=== PATIENT | male | born 2005 | race Caucasian/White ===

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

== ENCOUNTER 2024-09-01 13:59 | Emergency (ER) | payer BC, MEDICAID ==
[2024-09-01 14:15] VITALS: TEMP 98.4
[2024-09-01 14:57] LABS: Absolute Neutrophil Ct (ANC) 3.11 x10^3/uL (1.78-5.38); BASOPHIL % 0.2 % (0.2-1.2); Basophil (Absolute #) 0.01 x10^3/uL (0.01-0.08); Eosinophil % 1.3 % (0.8-7.0); Eosinophil (Absolute #) 0.06 x10^3/uL (0.04-0.54); Hematocrit 41.4 % (40.1-51.0); Hemoglobin 14.3 g/dL (13.7-17.5); Lymphocyte (Absolute #) 0.86 x10^3/uL (1.32-3.57); Mean Cell Volume 91.2 fL (79.0-92.2); Mean Corpuscular Hemoglobin 31.5 pg (25.7-32.2); Mean Corpuscular Hgb Concent. 34.5 g/dL (32.3-36.5); Mean Platelet Volume 9.4 fL (9.4-12.4); Monocyte (Absolute #) 0.74 x10^3/uL (0.30-0.82); Monocytes % 15.5 % (5.3-12.2); Platelet Count 171 x10^3/uL (163-337); Red Blood Count 4.54 x10^6/uL (4.63-6.08); White Blood Count 4.8 x10^3/uL (4.23-9.07)
[2024-09-01] MEDS ORDERED: Sodium Chloride 0.9% 1000 ML 1,000 ML ONE (14:59)
[2024-09-01] MEDS ORDERED: PROTONIX 40 MG IV IV ONE (14:59)
[2024-09-01] MEDS: PROTONIX 40 MG IV IV ONE (15:01)
[2024-09-01] MEDS: Sodium Chloride 0.9% 1000 ML 1,000 ML IV STA (15:01)
[2024-09-01 15:11] LABS: ALBUMIN 4.4 g/dL (3.5-5.0); ANION GAP 9.7 MEQ/L (5-15); BILIRUBIN,TOTAL 0.8 mg/dL (0.2-1.3); Calcium 9.2 mg/dL (8.4-10.2); Potassium 3.5 mmol/L (3.5-5.1); Total Protein 6.8 g/dL (6.3-8.2)
[2024-09-01 15:17] LABS: Creatinine 1 1.46 mg/dL (0.66-1.25); EST GLOMERULAR FILTRATION RATE 70.2 ML/MIN
[2024-09-01 16:08] VITALS: O2SAT 100
--- NOTE | 2024-09-01 16:16 | XRAY ---
Indication: Hematemesis. Multiple contiguous axial images obtained through the chest using 80 cc Isovue 370 contrast. Comparison: None Lungs inflated and clear. Heart not enlarged. Aorta is normal in course and caliber. No pathologic mediastinal/hilar lymphadenopathy. Bony thorax intact. CT abdomen/pelvis reported separately. Impression: Normal CT chest with contrast exam.
--- NOTE | 2024-09-01 16:18 | XRAY ---
Indication: Hematemesis. Acute abdomen pain. Multiple contiguous axial images obtained through the abdomen and pelvis using 80 cc Isovue 370 contrast. Comparison: None CT chest reported separately. Noncontrasted stomach and bowel loops appear nonobstructed. Appendix not visualized. No free fluid/air. Remaining liver, gallbladder, pancreas, spleen, adrenal glands, kidneys, ureters, bladder, and aorta are normal in CT appearance and attenuation. No pathologic retroperitoneal lymphadenopathy. Osseous structures intact. No ventral or inguinal hernias. Impression: Normal CT abdomen/pelvis with contrast exam.
--- NOTE | 2024-09-01 16:50 | ERPHSYRPT ---
- History of Present Illness Time Seen by Provider: 09/01/24 14:34 Source: patient Exam Limitations: no limitations Patient Subjective Stated Complaint: Pt reports he has had a "cramp/pinch" behind his umbilical area for approx 3 days. Started vomiting at approx 0100 and approx 0500 had blood in his emesis x1 episode and non since then . Triage Nursing Assessment: Pt alert and oriented x3. Respirations easy/nonlabored. Skin w/p/d. Ambulated to ED cot without difficulty. Abdomen flat/firm. Denies pain with palpation. Active bowel sounds in all four quads. Timing/Duration: today Severity: mild Associated Symptoms: nausea, vomiting Allergies/Adverse Reactions: cephalexin monohydrate [From KeRiptide IO] Allergy (Mild, Verified 09/01/24 14:08) Home Medications: No Reportable Medications [No Reported Medications] 09/01/24 [History] Hx Tetanus, Diphtheria Vaccination/Date Given: Yes Hx Influenza Vaccination/Date Given: No Hx Pneumococcal Vaccination/Date Given: Yes Travel Risk - International Travel Have you traveled outside of the country in past 3 weeks: No - Emerging Infectious Disease Are you exhibiting symptoms associated with any current EIDs: Yes Symptoms: Abdominal Pain, Vomitting - Review of Systems Eyes: No Symptoms Ears, Nose, & Throat: No Symptoms Respiratory: No Symptoms Cardiac: No Symptoms Abdominal/Gastrointestinal: Nausea, Vomiting, Hematemesis Genitourinary Symptoms: No Symptoms Musculoskeletal: No Symptoms - Past Medical History Pertinent Past Medical History: Yes Neurological History: No Pertinent History ENT History: No Pertinent History Cardiac History: No Pertinent History Respiratory History: No Pertinent History Endocrine Medical History: No Pertinent History Musculoskeletal History: No Pertinent History, Fractures Other Medical History: hx PNEUMONIA - Past Surgical History Past Surgical History: Yes - Social History Smoking Status: Current every day smoker Exposure to second hand smoke: Yes Drug Use: none Patient Lives Alone: No - Social Determinants of Health Will the patient participate in the screening: Declined to provide - Nursing Vital Signs Nursing Vital Signs: Initial Vital Signs Temperature 98.4 F 09/01/24 14:03 Pulse Rate 73 09/01/24 14:03 Respiratory Rate 16 09/01/24 14:03 Blood Pressure 140/92 09/01/24 14:03 O2 Sat by Pulse Oximetry 99 09/01/24 14:03 Pain Scale Pain Intensity 0 - Physical Exam General Appearance: no apparent distress Eye Exam: PERRL/EOMI Ears, Nose, Throat Exam: normal ENT inspection Neck Exam: normal inspection Respiratory Exam: normal breath sounds Cardiovascular Exam: regular rate/rhythm Gastrointestinal/Abdomen Exam: soft, normal bowel sounds SpO2: 100 Ordered Tests: Active Orders 24 hr Category Date Time Status IV Insertion STAT Care 09/01/24 14:34 Active ABDOMEN AND PELVIS W CONTRAST [CT] Stat Exams 09/01/24 14:35 Completed CHEST WITH CONTRAST [CT] Stat Exams 09/01/24 14:36 Completed AMYLASE Stat Lab 09/01/24 14:50 Completed CBC W DIFF Stat Lab 09/01/24 14:34 Completed CMP Stat Lab 09/01/24 14:50 Completed LIPASE Stat Lab 09/01/24 14:50 Completed UA W/RFX UR CULTURE Stat Lab 09/01/24 16:03 Ordered Medication Summary Discontinued Medications Generic Name Dose Route Start Last Admin Trade Name Freq PRN Reason Stop Dose Admin Sodium Chloride 1,000 mls @ 999 mls/hr 09/01/24 14:34 09/01/24 16:06 Sodium Chloride 0.9% 1000 Ml IV 09/01/24 15:34 Infused .Q1H1M STA Infusion Sodium Chloride Confirm 09/01/24 14:59 Sodium Chloride 0.9% 1000 Ml Administered 09/01/24 15:00 Dose 1,000 mls @ ud .ROUTE .STK-MED ONE Pantoprazole Sodium 40 mg 09/01/24 14:34 09/01/24 15:01 Pantoprazole 40 Mg Vial IV 09/01/24 14:35 40 mg STAT ONE Administration Pantoprazole Sodium Confirm 09/01/24 14:59 Pantoprazole 40 Mg Vial Administered 09/01/24 15:00 Dose 40 mg IV .STK-MED ONE Lab/Rad Data: Laboratory Result Diagrams 09/01/24 14:34 09/01/24 14:50 Laboratory Results 09/01/24 09/01/24 Range/Units 14:50 14:34 WBC 4.8 (4.23-9.07) x10^3/uL RBC 4.54 L (4.63-6.08) x10^6/uL Hgb 14.3 (13.7-17.5) g/dL Hct 41.4 (40.1-51.0) % MCV 91.2 (79.0-92.2) fL MCH 31.5 (25.7-32.2) pg MCHC 34.5 (32.3-36.5) g/dL RDW 12.0 (11.6-14.4) % Plt Count 171 (163-337) x10^3/uL MPV 9.4 (9.4-12.4) fL Gran % 65.0 (34.0-67.9) % Immature Gran % (Auto) 0.0 L (0.001-0.429) % Nucleat RBC Rel Count 0.0 (0.00-0.2) % Eos # (Auto) 0.06 (0.04-0.54) x10^3/uL Immature Gran # (Auto) 0.00 L (0.001-0.031) x10^3u/L Absolute Lymphs (auto) 0.86 L (1.32-3.57) x10^3/uL Absolute Monos (auto) 0.74 (0.30-0.82) x10^3/uL Absolute Nucleated RBC 0.00 (0.00-0.012) x10^3u/L Lymphocytes % 18.0 L (21.8-53.1) % Monocytes % 15.5 H (5.3-12.2) % Eosinophils % 1.3 (0.8-7.0) % Basophils % 0.2 (0.2-1.2) % Absolute Granulocytes 3.11 (1.78-5.38) x10^3/uL Basophils # 0.01 (0.01-0.08) x10^3/uL Sodium 136 (135-145) mmol/L Potassium 3.5 (3.5-5.1) mmol/L Chloride 100 (98-107) mmol/L Carbon Dioxide 30 (22-30) mmol/L Anion Gap 9.7 (5-15) MEQ/L BUN 11 (9-20) mg/dL Creatinine 1.46 H (0.66-1.25) mg/dL Estimated GFR 70.2 ML/MIN Glucose 96 (74-106) mg/dL Calcium 9.2 (8.4-10.2) mg/dL Total Bilirubin 0.80 (0.2-1.3) mg/dL AST 30 (17-59) U/L ALT 19 (0-50) U/L Alkaline Phosphatase 50 (38-126) U/L Serum Total Protein 6.8 (6.3-8.2) g/dL Albumin 4.4 (3.5-5.0) g/dL Amylase 54 (30-110) U/L Lipase 26 (23-300) U/L - Progress Progress Note: 09/01/24 16:44Patient was seen and evaluated for nausea vomiting and abdominal pain and 1 episode of hematemesis, he has not had any hematemesis since then. He does have a dull ache behind his umbilicus. He does admit to drinking on a regular basis. CT scan of the chest abdomen pelvis was obtained these are within normal limits. Patient was given IV fluids and IV PPI. His hemoglobin and hematocrit are stable at this time. He was updated with the results of the lab work and the CT scan and informed of the need for follow-up with his primary care provider and the need to obtain an outpatient endoscopy. He was also informed of the need to take [id number] Pepcid and PPI. He was informed of the need to stop drinking alcohol and the increased risk of canc er gastritis esophagitis and other conditions related to chronic alcohol abuse including liver failure and Medical Desision Making - Discussion of managment Agreed on:: need for follow-up - Departure Departure Disposition: Home Clinical Impression: Nausea & vomiting, Renal insufficiency, Dehydration, Hematemesis, Alcoholic gastritis with bleeding Condition: Stable Critical Care Time: No Referrals: ONI ARGUELLES NP [Primary Care Provider] - Follow up/PCP as directed Additional Instructions: please stop drinking and take pepcid over the counter
[2024-09-01 16:56] VITALS: BP 125/78; PULSE 65; RESP 18
== END 2024-09-01 16:59 | disposition home or self-care (01) ==
LOC: ED 13:59
DX: R11.2 Nausea with vomiting, unspecified (principal); R10.9 Unspecified abdominal pain; F17.200 Nicotine dependence, unspecified, uncomplicated; E86.0 Dehydration; K29.21 Alcoholic gastritis with bleeding
CPT/HCPCS: 36415; 71260; 74177; 80053; 82150; 83690; 85025; 96360; 96374; 99284; 99285